=== PATIENT | female | born 1980 | race Caucasian/White ===

== ENCOUNTER → 2022-11-09 | Outpatient (CLI) | payer SELFPAY ==
[2022-11-09 11:12] LABS: EXAGEN MAILED SPECIMEN
[2022-11-09 12:04] LABS: Color, Urine Yellow (Yellow); Glucose, Dipstick Normal (Normal); Ketone-Dipstick Negative (Negative); Leukocyte Esterase-Dipstick Negative /ul (Negative); Nitrite-Dipstick Negative (Negative); Occult Blood-Urine Negative /ul (Negative); Protein-Dipstick Negative (Negative); Urine Bilirubin Dipstick Negative (Negative); Urine Clarity Sl. Cloudy (Clear); Urine Urobilinogen Normal (Normal)
[2022-11-09 12:16] LABS: Absolute Lymphocyte Count 2.27 X10^3/uL (0.83-4.51); Absolute Neutrophil Count 3.1 X10^3/uL (2.0-7.7); Basophil# 0.05 X10^3/uL; Basophil% 0.8 % (0-1); Eosinophil# 0.13 X10^3/uL; Eosinophils% 2.2 % (0-5); Hematocrit 35.1 % (37-47); Hemoglobin 11.6 g/dL (12.0-15.0); Lymphocyte # 2.27 X10^3/ul (0.83-4.51); Lymphocyte % 37.8 % (19-41); Mean Corpuscular Hgb 27.2 pg (27.0-32.0); Mean Corpuscular Volume 82.4 fL (81-99); Mean Platelet Vol. 9.7 fl (6.2-12.0); Monocyte# 0.43 X10^3/uL; Monocyte% 7.2 % (0-10); NRBC Flagged by Analyzer 0 % (0-5); Neutrophil # 3.11 X10^3/uL (2.7-7.7); Neutrophil % 51.7 % (47-70); Platelet Count 348 K/mm3 (150-450); RBC Distribution Width CV 13.2 % (11.6-14.6); RBC Distribution Width SD 39.7 fl (35.1-43.9); Red Blood Count 4.26 M/mm3 (4.2-5.4)
[2022-11-09 12:20] LABS: Partial Thromboplast Time 27.5 Seconds (24.1-36.2)
[2022-11-09 12:37] LABS: ALB/GLOB Ratio 0.9 RATIO (0.9-2.4); AST(SGOT) 15 U/L (15-37); Alanine Aminotransfer ALT/SGPT 22 U/L (13-56); Albumin, Serum 3.6 g/dL (3.2-5.0); Alkaline Phosphatase 39 U/L (45-117); Anion Gap 6 (5-15); BUN 9 mg/dL (7-18); BUN/Creat Ratio 12.6 RATIO (10-20); Chloride 105 mmol/L (98-107); Creatinine, Serum 0.72 mg/dL (0.55-1.02); EST Glomerular Filtration Rate 96 mL/min (>60); Est Glom Filt Rate - Afr Amer 116 mL/min (>60); Globulin 4.1 g/dL (2.2-4.2); Glucose 94 mg/dL (74-106); Potassium 3.9 mmol/L (3.5-5.1); Protein, Total 7.7 g/dL (6.4-8.2); Sodium Level 138 mmol/L (136-145)
[2022-11-09 12:57] LABS: Protein, Urine (Random) < 6.0 mg/dL (<11.9)
[2022-11-11 19:07] LABS: Dilute Prothrombin Time (dPT) 36.2 sec (0.0-47.6); Dilute Russell Viper Venom 36.8 sec (0.0-47.0); Hexagonal Phase Phospholipid 5 sec (0-11); Thrombin Time 17.5 sec (0.0-23.0); dPT Confirm Ratio 1.02 Ratio (0.00-1.34)
[2022-11-11 20:18] LABS: Thrombin Time 20.2 sec (0.0-23.0)
[2022-11-11 20:21] LABS: Interpretation Comment: (.); PTT-LA 34.3 sec (0.0-43.5)
== END | disposition home or self-care (01) ==
PROVIDERS: Referring Provider Internal Medicine Rheumatology; Visit Provider Internal Medicine Rheumatology
DX: M06.4 Inflammatory polyarthropathy (principal); R76.8 Other specified abnormal immunological findings in serum
CPT/HCPCS: 36415; 80053; 81002; 82570; 84156; 85025; 85598; 85610; 85670; 85730

== ENCOUNTER → 2023-02-17 | Outpatient (CLI) | payer SELFPAY ==
[2023-02-19 16:09] LABS: G6PD Quant Test 230 (127-427)
== END | disposition home or self-care (01) ==
PROVIDERS: PCP Family Medicine; Referring Provider Internal Medicine Rheumatology; Visit Provider Internal Medicine Rheumatology
DX: M06.4 Inflammatory polyarthropathy (principal); Z79.899 Other long term (current) drug therapy; R76.8 Other specified abnormal immunological findings in serum
CPT/HCPCS: 36415; 82955

== ENCOUNTER 2023-03-16 23:19 | Emergency (ER) | payer OTHER, SELFPAY ==
--- NOTE | 2023-03-16 00:20 | RAD_ITS ---
EXAM: XR CHEST, 2 VIEWS CLINICAL INDICATION: Dyspnea TECHNIQUE: Frontal and lateral views of the chest. COMPARISON: No relevant prior studies available. FINDINGS: LUNGS AND PLEURAL SPACES: Unremarkable. No consolidation or edema. No pneumothorax. No effusion. HEART: Unremarkable. Cardiac silhouette not enlarged. MEDIASTINUM: Central airways and mediastinal contour are unremarkable. BONES/JOINTS: Degenerative changes of the spine. SOFT TISSUES: Unremarkable. RAD/Chest PA and Lateral IMPRESSION: No radiographic evidence of acute cardiopulmonary disease. Electronically Signed: Philip Chow MD at 1:11 EDT ,
[2023-03-16 23:19] VITALS: BP 121/86; PULSE 112; RESP 24; TEMP 36.8; O2SAT 99; BMI 30.8
--- NOTE | 2023-03-16 23:52 | EDS_ITS ---
HPI History of Present Illness Chief Complaint: General Illness Informant: patient Onset/Context/Timing Onset: Days (4) Context: Gradual Onset Timing: Continuous Quality: Burning Location: Chest and upper back Worsened by: Laying flat Relieved by: Sitting forward Narrative Narrative: Patient presents with fever and cough that has been getting worse over the last 4 days. Patient saw her primary care physician today who diagnosed her with pneumonia. Patient states she was given an injection of Rocephin and was given a prescription for amoxicillin. Patient states that she feels worse tonight. Patient admits to some shortness of breath. Patient denies any cough. Patient states she had a fever today of 101 when she was at her primary care physician's office. Patient admits to nausea but denies any vomiting. Patient admits to some pain in her upper back that radiates into her head and neck. Patient admits to some pain in her chest with coughing. [facility] Medical History Carpal tunnel syndrome Frequent headaches Gallstones High cholesterol History of back problems History of emotional problems Hypothyroidism IBS (irritable bowel syndrome) Rheumatoid arthritis Seasonal allergies Home Medications levothyroxine 112 mcg tablet (Synthroid) 112 mcg PO DAILY 05/13/21 [History Last Taken Unknown] naproxen 500 mg tablet 500 mg PO BID 05/13/21 [History Last Taken Unknown] omega-3 fatty acids 1,000 mg capsule (Fish Oil Concentrate) 1,000 mg PO DAILY 05/13/21 [History Last Taken Unknown] sertraline 100 mg tablet (Zoloft) 100 mg PO DAILY 05/13/21 [History Last Taken Unknown] sumatriptan succinate 50 mg tablet 50 mg PO .COMPLEX #9 tabs 05/13/21 [Rx Last Taken Unknown] topiramate 50 mg tablet 50 mg PO BID #60 tabs 05/13/21 [Rx Last Taken Unknown] Allergy/AdvReac Type Severity Reaction Status Date / Time metronidazole [From Flagyl] Allergy Mild Rash Verified 03/16/23 23:22 Family History Grandfather Myocardial infarction, Onset Age: 70 Cancer Parkinson disease Grandmother Thyroid disorder Mother Thyroid disorder Other Depression High cholesterol Liver disease Surgical History History of appendectomy History of History of cholecystectomy History of tubal ligation Social History Smoking Status: Never smoker Electronic Cigarette Use: not used second hand exposure: No alcohol intake: never substance use type: does not use ROS ROS ED Constitutional Constitutional ED: Reports chills and fever(s) Eyes Eyes: Denies blurry vision or change in vision ENT ENT ED: Denies rhinorrhea or sore throat Cardiovascular Cardiovascular: Reports chest pain; Denies palpitations Respiratory/Chest Respiratory/Chest: Reports dyspnea; Denies cough Gastrointestinal Gastrointestinal: Reports nausea; Denies vomiting Genitourinary Genitourinary ED: Denies dysuria or hematuria Musculoskeletal Musculoskeletal: Reports back pain and neck pain Integumentary Denies abscess or rash Neurologic Neurologic: Reports headache(s); Denies weakness Allergic/Immunologic Allergic/Immunologic ED: Denies mouth swelling or urticaria EXAM Physical Exam Const Vital Signs: 03/16/23 23:19 03/16/23 23:26 03/17/23 00:36 Temperature 98.2 F 98.6 F Temperature Source Temporal Temporal Pulse Rate 112 H 91 Respiratory Rate 24 H 18 Respiratory Effort Normal Respiratory Pattern Tachypnea Blood Pressure 121/86 H 117/69 Blood Pressure Mean 97 85 Pulse Ox 99 99 Oxygen Delivery Method Room Air Positive well nourished and well developed General Appearance ED: well developed HEENT Reports moist mucous membranes Neck supple and no JVD Resp normal respiratory effort Auscultation: rhonchi right lower (Slight) Cardio regular rate and regular rhythm GI normal to inspection, nondistended, normoactive bowel sounds and non-tender Palpation: soft Extremity normal to inspection General Extremety ED: Negative for edema or tenderness General Extremity: Negative for edema Neuro oriented x3, CN's II-XII intact bilaterally and no sensory deficits noted Sensorium / Orientation: alert Motor Exam: strength 5/5 throughout Psych mental status grossly normal Skin no rashes or lesions noted MDM MDM MDM Narrative Medical decision making narrative: Differential diagnosis includes pneumonia, pneumothorax, viral illness, bronchitis, upper respiratory infection, COVID infection, and influenza infection. Chest x-ray will be obtained to assess for pneumonia and pneumothorax. CBC will be obtained to assess for leukocytosis and anemia. Basic metabolic profile will be obtained to assess for electrolyte abnormality and renal function. COVID-19 rapid antigen will be obtained to assess for COVID infection. Influenza A and influenza B antigens will be obtained to assess for influenza infection. Lab Data Attestation: I reviewed the patient's lab results. Lab results narrative: CBC was reviewed. White blood cell count was 3.2. Hemoglobin, hematocrit, and platelets were all within normal limits. Basic metabolic profile was reviewed and was essentially within normal limits. COVID-19 rapid antigen was reviewed and was negative. Influenza A and influenza B antigens were reviewed and were negative. Labs: Laboratory Results - last 24 hr 03/17/23 03/17/23 00:10 00:10 WBC 3.2 L RBC 4.63 Hgb 12.5 Hct 38.8 MCV 83.8 MCH 27.0 MCHC 32.2 RDW Std Deviation 41.7 RDW Coeff of Brian 13.6 Plt Count 186 MPV 9.2 Immature Gran % (Auto) 0.600 Neut % (Auto) 72.1 H Lymph % (Auto) 18.0 L [place] % (Auto) 7.1 Eos % (Auto) 0.3 Baso % (Auto) 1.9 H Absolute Neuts (auto) 2.3 Absolute Lymphs (auto) 0.58 L Nucleated RBC % 0 Diff Path Review May foll Sodium 137 Potassium 3.8 Chloride 105 Carbon Dioxide 25.0 Anion Gap 7 BUN 5 L Creatinine 0.76 Estim Creat Clear Calc 77.82 Est GFR (MDRD) Af Amer 108 Est GFR (MDRD) Non-Af 89 BUN/Creatinine Ratio 6.6 L Glucose 110 H Calcium 9.3 Radiography Diagnostic Testing: Clinical Impression(s) from Imaging Studies Chest X-Ray 03/16/23 00:20 IMPRESSION: No radiographic evidence of acute cardiopulmonary disease. Electronically Signed: Philip Chow MD at 1:11 EDT , PA and lateral chest x-ray was obtained. There are 2 views. On my independent interpretation, lung herrmann are clear. There is normal cardiac silhouette. Bony thorax is normal. There is no acute process noted. Radiologist also interpreted the x-ray and agrees. Treatment and Re-Evaluation :: Patient was given IV fluids. Patient was advised of her findings. Patient is feeling better on reevaluation. Patient was instructed to continue her antibiotics as previously prescribed. Patient was instructed to follow-up with her primary care physician in 3 to 5 days. Patient was instructed to return if worse in any way. Patient understood and was agreeable with the plan. All questions were answered. Discharge Plan Triage Chief Complaint: General Illness ED Provider: Praveen Bolanos Dx/Rx/DC Orders Clinical Impression: Pneumonia Instructions: ED Pneumonia (Adult) Prescriptions: No Action naproxen 500 mg tablet 500 mg PO BID levothyroxine [Synthroid] 112 mcg tablet 112 mcg PO DAILY sertraline [Zoloft] 100 mg tablet 100 mg PO DAILY omega-3 fatty acids [Fish Oil Concentrate] 1,000 mg capsule 1,000 mg PO DAILY sumatriptan succinate 50 mg tablet 50 mg PO .COMPLEX Qty: 9 2RF Rx Instructions: 50 mg PO every two hours as needed for headache up to two tablets per day topiramate 50 mg tablet 50 mg PO BID Qty: 60 2RF Rx Instructions: Begin after completing 1 week course of topiramate 25 mg twice daily Primary Care Provider: Olman Tiwari Referrals: Olman Tiwari DO [Primary Care Provider] - 3-5 Days Disposition Disposition: Home, Self Care
[2023-03-17] MEDS: 0.9% Normal Saline 1,000 ML 1000 ML IV (00:12)
[2023-03-17 00:21] LABS: Absolute Lymphocyte Count 0.58 X10^3/uL (0.83-4.51); Absolute Neutrophil Count 2.3 X10^3/uL (2.0-7.7); Basophil# 0.06 X10^3/uL; Basophil% 1.9 % (0-1); Eosinophil# 0.01 X10^3/uL; Eosinophils% 0.3 % (0-5); Hematocrit 38.8 % (37-47); Hemoglobin 12.5 g/dL (12.0-15.0); Lymphocyte # 0.58 X10^3/ul (0.83-4.51); Mean Corp Hgb Conc 32.2 g/dL (32-36); Mean Corpuscular Volume 83.8 fL (81-99); Mean Platelet Vol. 9.2 fl (6.2-12.0); Monocyte# 0.23 X10^3/uL; Monocyte% 7.1 % (0-10); NRBC Flagged by Analyzer 0 % (0-5); Neutrophil # 2.32 X10^3/uL (2.7-7.7); Neutrophil % 72.1 % (47-70); POSITIVE DIFFERENTIAL YES; Platelet Count 186 K/mm3 (150-450); RBC Distribution Width CV 13.6 % (11.6-14.6); RBC Distribution Width SD 41.7 fl (35.1-43.9); Red Blood Count 4.63 M/mm3 (4.2-5.4); White Blood Count 3.2 K/mm3 (4.4-11.0)
[2023-03-17 00:31] LABS: Differential Indicated SCAN CRITERIA MET
[2023-03-17 00:35] LABS: Anion Gap 7 (5-15); BUN 5 mg/dL (7-18); BUN/Creat Ratio 6.6 RATIO (10-20); Calcium,Total 9.3 mg/dL (8.5-10.1); Chloride 105 mmol/L (98-107); Creatinine, Serum 0.76 mg/dL (0.55-1.02); EST Glomerular Filtration Rate 89 mL/min (>60); Est Glom Filt Rate - Afr Amer 108 mL/min (>60); Estimated Creatinine Clearance 77.82 ml/min; Glucose 110 mg/dL (74-106); Potassium 3.8 mmol/L (3.5-5.1); Sodium Level 137 mmol/L (136-145)
[2023-03-17 00:36] VITALS: BP 117/69; PULSE 91; RESP 18; TEMP 37; O2SAT 99
[2023-03-17 01:39] VITALS: BP 116/70; PULSE 74; RESP 18; O2SAT 95
[2023-03-17 12:35] LABS: Pathologist Review Reviewed
== END 2023-03-17 01:43 | disposition home or self-care (01) ==
PROVIDERS: Emergency Provider Emergency Medicine; PCP Family Medicine; Visit Provider Emergency Medicine
DX: J18.9 Pneumonia, unspecified organism (principal); E78.00 Pure hypercholesterolemia, unspecified; E03.9 Hypothyroidism, unspecified; Z79.899 Other long term (current) drug therapy; Z90.49 Acquired absence of other specified parts of digestive tract
CPT/HCPCS: 71046; 80048; 85025; 87428; 96360; 99282; J7030; A4216